=== PATIENT | female | born 1995 | race Caucasian/White ===

== ENCOUNTER 2016-10-29 22:24 | Emergency (ER) | payer OTHER ==
[~2016-10-29] VITALS: Ht 157.5 cm; Wt 99.8 kg
--- NOTE | 2016-10-29 22:29 | NUR ---
PT WALKED INTO ER C/O LEFT ARM NUMBNESS X 2HRS, STATES SHE HAD BEEN STUDYING WHEN SHE FELT SENSATION. PT IS ALERT, ORIENTED X 4, BILATERAL STRENGTHS EQUAL, PT ABLE TO MAKE NEEDS KNOWN, NO SLURRED SPEECH, NO FACIAL DROOPING, NO RESP DISTRESS NOTED OR REPORTED UPON ASSESSMENT... MD AT BEDSIDE...
--- NOTE | 2016-10-29 23:50 | NUR ---
Patient discharged to home in stable conditon. Written and verbal after care instructions given. Patient verbalizes understanding of instructions. Pt walked out of ER unassisted with belongings and boyfriend at side...
[2016-10-30 00:23] VITALS: BP 126/97
== END 2016-10-30 00:25 | disposition home or self-care (01) ==
LOC: ER 22:24
DX: M54.12 Radiculopathy, cervical region (principal); R20.0 Anesthesia of skin; Z88.0 Allergy status to penicillin
CPT/HCPCS: A4663